=== PATIENT | male | born 1950 | race Two or more races ===

== ENCOUNTER 2021-04-29 15:38 | Inpatient (IN) | payer OTHER ==
[~2021-04-29] VITALS: Ht 165.1 cm; Wt 61.2 kg
[2021-04-29] MEDS ORDERED: GEMFIBROZIL600 MG PO (15:56)
[2021-04-29] MEDS ORDERED: SYNTHROID88 MCG PO (15:57)
[2021-04-29] MEDS ORDERED: GLIMEPIRIDE4 M1 PO (15:57)
[2021-04-29] MEDS ORDERED: LITHOBID300 M1 PO (15:57)
[2021-04-29] MEDS ORDERED: ZOLOFT100 MG PO (15:57)
[2021-04-29] MEDS ORDERED: SEROQUEL300 MG PO (15:58)
[2021-04-29] MEDS ORDERED: BENZTROPINE2 MG/2 ML IJ (15:59)
[2021-04-29] MEDS ORDERED: CLONAZEPAM0.5 M1 PO (16:00)
--- NOTE | 2021-04-29 16:00 | NUR ---
PTE DESORIENTADO,ESTABLE Y ACOMPANADO DEL FAMILIAR.EL CUAL REFIERE QUE LLEVA 4 PARK SIN COMER Y HOY TUVO NARAYAN CAIDA DE LA CAMA.
--- NOTE | 2021-04-29 16:46 | NUR ---
EVALUA PTE. SE EDUCA A PTE SOBRE TX MEDICO. PTE REFIERE COMPRENDER. SE REALIZAN MUESTRAS DE LABORATORIO BAJO MEDIDAS ASEPTICAS. SE ADMINISTRA IV'S JOYCE ORDEN MEDICA. SE NOTIFICA CT A . SE NOTIFICA CONI X. CONSULTA CON TRABAJADOR SOCIAL NOTIFICADA A .
--- NOTE | 2021-04-29 23:24 | NUR ---
SE RECIBE PTE DESORIENTADO EN CAMA BAJA CON BARANDAS ELEVADAS POR SEGURIDAD. CON CANULA NASAL A 3 LITROS, CANALIZADO EN PERIFERAL MANO RT CON ANGIO #20 AREA DE VENOPUNCION SAMIR DE EDEMA Y ERITEMA. RECIBIENDO D5W-0.45 BAJANDO A 150ML/HR. FOLLEY CATHETER DRENANDO A GRAVEDAD ORINA COLOR AMARILLO INTENSO. PEND. LABS PARA LAS [address] INA ACUNA. SE MANTIENE BAJO OBSERVACION POR CAMBIOS SIGNIFICATIVOS.
--- NOTE | 2021-04-30 03:30 | NUR ---
[address] MONROY B/P EN . EL MISMO ORDEN ADMINISTRAR UN ARIK DE 500ML DE D5W/-0.45%.
--- NOTE | 2021-04-30 07:34 | NUR ---
SE RECIBE PACIENTE EN AREA DE CHEST PAIN CAMA #16. SE OFRECE SHIRIN PARA EVALUAR CONDICION.PACIENTE CONECTADO A MONITOR CARDIACO CON SATUROMETRO,DORMIDO, CON IVF'S PATENTES BAJANDO DEXT5%+.45%NACL A 150MLS/HR Y DOPAMINA A 25 MLS/HR,CON CANALIZACION BRAZO DERECHO ANGIO # 22 Y BRAZO IZQ ANGIO #18 AMBAS AREAS LIBRES DE EDEMA Y/O ERITEMA.SE MIDEN Y DOCUMEMTAN S/V.PACIENTE CON BARANDAS ELEVADAS POR SCHRADER SEGURIDAD.SE MONITOREA EN TURNO POR CAMBIOS SIGNIFICATIVOS.
--- NOTE | 2021-04-30 09:18 | NUR ---
PACIENTE CONTINUA CON PRESION BAJA Y CON SATURACIONES IRREGULARES. SE REALIZA LLAMADA A DR INA ACUNA Y SE NOTIFICA PRESION EN 83/48 QUE TIENE EL DRIP DE DOPAMINA A 25 MLS/HR Y UN DEXT 5%+.45%NACL BAJANDO A 125 MLS/HR.Y SE LE INDICA QUE LAS SATURACIONES BAJAN HASTA 60-65% SE MANTIENEN EN MYKEL NIVEL BEVERLY O DOS MINUTOS AUNQUE LUEGO VUELVEN A SUBIR A 93_95% POR PERIODOS DE LARGOS AUNQUE EN OCASIONES VUELVE EL MISMO PATRON DE DESENSO. ZARA ORDENA COMENZAR EN DRIP DE LEVOPHED DE 8MG, EL MISMO SE COMIENZA A BAJAR A 4MLS/HR Y SE MONITOREA POR CAMBIOS SIGNIFICATIVOS.
[2021-05-23] MEDS ORDERED: DESMOPRESS4 MCG/1 ML SUBCUTANEO (16:41)
[2021-05-23] MEDS ORDERED: LEVOTHYROXINE88 MCG PO (16:41)
[2021-05-23] MEDS ORDERED: HUMULIN N100 UNIT/2 SUBCUTANEO ×2 (16:41)
[2021-05-23] MEDS ORDERED: LUBRIDERM DAIL177 ML TOP (16:41)
== END 2021-05-23 18:53 | disposition home or self-care (01) | DRG 682 ==
LOC: ER 15:38 → ICU 04-30 12:14 → ICU-2 04-30 12:14 → ICU 05-13 14:19
PROVIDERS: ADMIT Internal Medicine; ATTEND Internal Medicine
PROC: 02HV33Z Insertion of Infusion Device into Superior Vena Cava, Percutaneous Approach (ICD-10-PCS; 2021-05-01)
PROC: 30233N1 Transfusion of Nonautologous Red Blood Cells into Peripheral Vein, Percutaneous Approach (ICD-10-PCS; principal; 2021-05-08)
DX: N17.8 Other acute kidney failure (principal); J69.0 Pneumonitis due to inhalation of food and vomit; G21.0 Malignant neuroleptic syndrome; R65.21 Severe sepsis with septic shock; A41.9 Sepsis, unspecified organism; J15.0 Pneumonia due to Klebsiella pneumoniae; M62.82 Rhabdomyolysis; Z16.12 Extended spectrum beta lactamase (ESBL) resistance; E87.0 Hyperosmolality and hypernatremia; G93.49 Other encephalopathy; E86.0 Dehydration; E11.65 Type 2 diabetes mellitus with hyperglycemia; D64.9 Anemia, unspecified; Z20.822 Contact with and (suspected) exposure to COVID-19